=== PATIENT | female | born 1955 | race American Indian/Alaskan Native ===

== ENCOUNTER 2016-12-22 14:58 | Emergency (ER) | payer OTHER ==
[2016-12-22 14:59] VITALS: BMI 29.3
[2016-12-22] MEDS ORDERED: Sodium Chloride 0.9% 1,000 ML IV ONE (16:58)
[2016-12-22] MEDS ORDERED: Albuterol-Ipratrop 3 mg / 0.5 (3 ml) UD IH STA (17:00)
[2016-12-22] MEDS ORDERED: Sodium Chloride 0.9% 1,000 ML ONE (17:15)
[2016-12-22 17:20] LABS: BASO % 0.6 % (0.0-2.0); EOS % 0.3 % (0.0-4.0); HEMATOCRIT 41.1 % (34.0-47.0); LYMPH # 1.7 K/uL (1.0-4.3); LYMPH % 35.6 % (20.0-40.0); MEAN CELL VOLUME 70.2 fL (81.0-99.0); MEAN CORPUSCULAR HEMOGLOBIN 22.3 pg (27.0-31.0); MEAN CORPUSCULAR HGB CONC 31.8 g/dL (33.0-37.0); MEAN PLATELET VOLUME 10.1 fL (7.2-11.7); MONO # 0.8 K/uL (0.0-0.8); MONO % 15.7 % (0.0-10.0); NRBC % 0.1 % (0.0-2.0); RED CELL DISTRIBUTION WIDTH 14.6 % (11.5-14.5); WHITE BLOOD COUNT 4.8 K/uL (4.8-10.8)
[2016-12-22 17:30] LABS: CHLORIDE 92 mmol/L (98-107); POTASSIUM 4.3 mmol/L (3.6-5.2); SODIUM 137 mmol/L (132-148)
[2016-12-22 17:32] LABS: ALB/GLOB RATIO 1.1 (1.0-2.1); ALKALINE PHOSPHATASE 58 U/L (38-126); AST/SGOT 33 U/L (14-36); BILIRUBIN,TOTAL 0.7 mg/dL (0.2-1.3); CARBON DIOXIDE 26 mmol/L (22-30); GFR AFRICAN-AMERICAN > 60; TOTAL PROTEIN 8.3 g/dL (6.3-8.3)
[2016-12-22 17:33] LABS: ALT/SGPT 19 U/L (9-52); BLOOD UREA NITROGEN 27 mg/dL (7-17); CALCIUM 9.4 mg/dl (8.6-10.4); GLUCOSE,RANDOM 104 mg/dL (65-105)
[2016-12-22 17:41] LABS: RBC URINE < 1 /hpf (0-3); URINE BACTERIA RARE (<OCC); URINE BILIRUBIN NEGATIVE (NEGATIVE); URINE BLOOD NEGATIVE (NEGATIVE); URINE COLOR Yellow (YELLOW); URINE GLUCOSE (UA) NORMAL (Normal); URINE HYALINE CAST >20 /lpf (0-2); URINE KETONE TRACE mg/dL (NEGATIVE); URINE LEUKOCYTE ESTERASE NEG Leu/uL (Negative); URINE UROBILINOGEN NORMAL mg/dL (0.2-1.0); WBC URINE 2 /hpf (0-5)
[2016-12-22] MEDS ORDERED: Albuterol-Ipratrop 3 mg / 0.5 (3 ml) UD ONE (17:42)
[2016-12-22 17:47] LABS: URINE PROTEIN 1+ mg/dL (NEGATIVE)
--- NOTE | 2016-12-22 20:27 | US ---
EXAM: US Abdomen Limited, Right Upper Quadrant. CLINICAL HISTORY: 61 years old, female; Pain; Abdominal pain; Epigastric; Additional info: Ruq pain TECHNIQUE: Real-time ultrasound of the right upper quadrant with image documentation. EXAM DATE/TIME: 12/22/2016 6:06 PM COMPARISON: No relevant prior studies available. FINDINGS: Gallbladder: Within normal limits in appearance, without evidence of gallstones, significant gallbladder wall thickening, or pericholecystic fluid. Reportedly negative sonographic Wild's sign. Common bile duct: Does not appear abnormally dilated, measuring less than 6 mm in diameter. Liver: Within normal limits in appearance. Measures 14.5 cm in length. Normal flow seen in the main portal vein on color and Doppler imaging. Pancreas: Imaged portions appear unremarkable. Tail of the gland is obscured by bowel gas. Right kidney: Demonstrates very mild hydronephrosis. Otherwise within normal limits in appearance. Measures 10.7 cm in length. No renal calculi are visible sonographically. IMPRESSION: Very mild right hydronephrosis, cause not identified. Otherwise, no evidence of significant acute process. No evidence of acute cholecystitis. See above for remaining findings.
--- NOTE | 2016-12-22 21:01 | C.PDOC ---
Time Seen by Provider: 12/22/16 16:44 Chief Complaint (Nursing): Medical Clearance History Per: Patient Onset/Duration Of Symptoms: Days (few) Current Symptoms Are (Timing): Still Present Associated Symptoms: Fever, Cough, Nasal Congestion Severity: Moderate Additional History Per: Prior Records Past Medical History Reviewed: Historical Data, Nursing Documentation, Vital Signs Vital Signs: Last Vital Signs Temp 98.4 F 12/22/16 15:11 Pulse 73 12/22/16 15:11 Resp 19 12/22/16 15:11 BP 112/65 12/22/16 15:11 Pulse Ox 98 12/22/16 15:11 - Medical History PMH: Arthritis, HTN Other PMH: Sinusitis Surgical History: No Surg Hx Family History: States: Unknown Family Hx - Social History Hx Alcohol Use: No Hx Substance Use: No - Immunization History Hx Tetanus Toxoid Vaccination: No Hx Influenza Vaccination: No Hx Pneumococcal Vaccination: No Review Of Systems Except As Marked, All Systems Reviewed And Found Negative. Constitutional: Positive for: Fever, Malaise ENT: Positive for: Nose Congestion. Negative for: Throat Pain Cardiovascular: Negative for: Chest Pain Respiratory: Positive for: Cough. Negative for: Shortness of Breath, Hemoptysis Gastrointestinal: Positive for: Abdominal Pain Genitourinary: Negative for: Dysuria Musculoskeletal: Positive for: Back Pain. Negative for: Neck Pain Skin: Negative for: Rash Neurological: Negative for: Weakness, Numbness, Seizures, Altered Mental Status Physical Exam - Physical Exam Appears: Non-toxic, No Acute Distress Skin: Normal Color, Warm, Dry, No Rash Head: Atraumatic, Normacephalic Eye(s): bilateral: PERRL, EOMI Neck: Normal ROM, Supple Chest: Symmetrical Cardiovascular: Rhythm Regular Respiratory: Normal Breath Sounds, No Accessory Muscle Use Gastrointestinal/Abdominal: Soft, Tenderness (mild RUQ), No Guarding, No Rebound Back: No CVA Tenderness Extremity: Normal ROM Neurological/Psych: Oriented x3, Normal Motor, Normal Sensation ED Course And Treatment - Laboratory Results Result Diagrams: 12/22/16 17:14 12/22/16 17:14 Lab Interpretation: No Acute Changes O2 Sat by Pulse Oximetry: 98 Pulse Ox Interpretation: Normal - Radiology CXR: Interpreted by Me, Viewed By Me CXR Interpretation: Yes: No Acute Disease - CT Scan/US RUQ Sono Other Rad Studies (CT/US): Read By Radiologist, Radiology Report Reviewed CT/US Interpretation: IMPRESSION: Very mild right hydronephrosis, cause not identified. . Otherwise, no evidence of significant acute process. No evidence of acute. cholecystitis. . See above for remaining findings. Progress - Interventions Interventions:: Observation, Intravenous fluid - Medications Administered Inhaled nebulized: Anticholinergic, Beta-2 agonist Intravenous: Antiemetic, H-2 jameson, NSAID - Data Reviewed Data Reviewed: Lab, Diagnostic imaging, Old records - Patient Status Patient status: Mostly improved - Continuity of Care Discussed patient case with:: Patient, Family-HIPPA compliant, ED Nurse, PMD - Patient Plan Patient Plan: Discharge, F/U with PCP, Continue present meds Disposition Discussed With Dr.: Mendel Lawrence Doctor Will See Patient In The: Office Counseled Patient/Family Regarding: Studies Performed, Diagnosis, Need For Followup - Disposition Referrals: Mendel Lawrence MD [Staff Provider] - Disposition: HOME/ ROUTINE Disposition Time: 21:02 Condition: IMPROVED Additional Instructions: Drink plenty of fluids. Follow up with your doctor this week. Return to the ER if you develop shortness of breath, vomiting, worsening of symptoms or if you have any other concerns. Instructions: Cold Symptoms (ED) Forms: General Discharge Instructions - Clinical Impression Clinical Impression: Abdominal pain, Upper respiratory tract infection
[2016-12-22 21:35] VITALS: BP 117/72; PULSE 66; RESP 18; TEMP 99.2; O2SAT 96
--- NOTE | 2016-12-23 08:45 | RAD ---
PROCEDURE: CHEST RADIOGRAPH, 1 VIEW HISTORY: Cough COMPARISON: None available. FINDINGS: LUNGS: Mild venous congestion. PLEURA: No pneumothorax or pleural fluid seen. CARDIOVASCULAR: Normal. OSSEOUS STRUCTURES: Degenerative changes in the spine with paravertebral osteophytes. VISUALIZED UPPER ABDOMEN: Normal. OTHER FINDINGS: None. IMPRESSION: Mild venous congestion.
== END 2016-12-22 21:34 | disposition home or self-care (01) ==
LOC: C.ER 14:58
DX: R10.11 Right upper quadrant pain (principal); J06.9 Acute upper respiratory infection, unspecified
CPT/HCPCS: 71010; 76705; 80053; 81001; 83690; 85025; 87804; 94640; 96374; 96375; 99284; J1885; J2405; J7040

== ENCOUNTER 2017-09-17 13:41 | Emergency (ER) | payer MEDICAID, OTHER ==
[2017-09-17 13:41] VITALS: BMI 29.3
--- NOTE | 2017-09-17 14:23 | C.PDOC ---
History Of Present Illness 62 y/o female presents to ED with complaints of right sided abdominal pain and dysuria for "awhile". Patient also complains of vaginal itchiness, burning and discomfort for some time. Denies fever, chills, back pain, bowel/bladder incontinence, vomiting or any other complaints at this time. Patient states she has sen GI for her abdominal pain, last colonoscopy was 3 months ago and just showed polyps. Patient states she is taking the medications with no improvement. Time Seen by Provider: 09/17/17 14:00 Chief Complaint (Nursing): Abdominal Pain History Per: Patient History/Exam Limitations: no limitations Onset/Duration Of Symptoms: Days Current Symptoms Are (Timing): Still Present Location Of Pain/Discomfort: Suprapubic, Other (vaginal ) Associated Symptoms: Urinary Symptoms. denies: Nausea, Vomiting, Diarrhea, Loss Of Appetite Last Bowel Movement: Today Past Medical History Reviewed: Historical Data, Nursing Documentation, Vital Signs Vital Signs: Last Vital Signs Temp 97.8 F 09/17/17 15:47 Pulse 74 09/17/17 15:47 Resp 18 09/17/17 15:47 BP 134/70 09/17/17 15:47 Pulse Ox 98 09/17/17 15:47 - Medical History PMH: Arthritis, HTN Surgical History: No Surg Hx Family History: States: No Known Family Hx - Social History Hx Alcohol Use: No Hx Substance Use: No - Immunization History Hx Tetanus Toxoid Vaccination: No Hx Influenza Vaccination: No Hx Pneumococcal Vaccination: No Review Of Systems Constitutional: Negative for: Fever, Chills Gastrointestinal: Positive for: Abdominal Pain. Negative for: Vomiting, Diarrhea, Constipation Genitourinary: Positive for: Dysuria, Pelvic Pain. Negative for: Vaginal Discharge, Vaginal Bleeding Skin: Negative for: Rash Physical Exam - Physical Exam Appears: Non-toxic, No Acute Distress Skin: Normal Color, Warm, Dry, No Rash Head: Atraumatic, Normacephalic Eye(s): bilateral: Normal Inspection, EOMI Oral Mucosa: Moist Neck: Supple Cardiovascular: Rhythm Regular Respiratory: Normal Breath Sounds, No Rales, No Rhonchi, No Wheezing Gastrointestinal/Abdominal: Bowel Sounds, Soft, Tenderness (suprapubic and RUQ) , No Distention, No Guarding, No Rebound, No Hernia, No Ascites Back: No CVA Tenderness Pelvic: Normal External Exam, No Vaginal Bleeding, Vaginal Discharge (white copious amount), No Cervical Motion Tenderness, No Adnexal Tenderness Extremity: Normal ROM, Capillary Refill (<2 seconds), No Deformity, No Swelling Neurological/Psych: Oriented x3, Normal Speech, Normal Motor, Normal Sensation Gait: With Assistance (uses cane) ED Course And Treatment - Laboratory Results Result Diagrams: 09/17/17 14:32 09/17/17 14:32 Lab Interpretation: No Acute Changes O2 Sat by Pulse Oximetry: 97 (RA) Pulse Ox Interpretation: Normal Medical Decision Making Medical Decision Making: Impression: abdominal pain, vaginal pain Prior records reviewed: patient last seen on 12/22/16 for abdominal pain. Ultrasound results returned negative; discharged. Plan: Labs, Pepcid, Urine and urine culture ordered Progress: All labs reviewed Re-eval: patient has no fever and resting in no distress. Discussed lab results with patient. She is stable for discharge and instructed to follow up with GI regarding her abdominal pain and with recruit instructor. Rx sent to the pharmacy. Disposition Counseled Patient/Family Regarding: Studies Performed, Diagnosis, Need For Followup, Rx Given - [facility]position [facility] Disposition: HOME/ ROUTINE Disposition Time: 15:45 Condition: GOOD Additional Instructions: Please follow up with your recruit instructor and with your primary doctor for further evaluation Take medications as prescribed. Prescriptions: Clindamycin 2% 1 applic VG HS #1 tube metroNIDAZOLE [Flagyl] 500 mg PO BID #14 tab Instructions: Bacterial Vaginosis (ED) Forms: [facility] (I[place]ic) - POA Present On Arrival: None - Clinical Impression Clinical Impression: Abdominal pain, Vaginitis - PA / HEALTHCARE MARKETER / Resident Statement MD/DO has reviewed & agrees with the documentation as recorded. - Scribe Statement The provider has reviewed the documentation as recorded by the Jose Osorio All medical record entries made by the Jose were at my direction and personally dictated by me. I have reviewed the chart and agree that the record accurately reflects my personal performance of the history, physical exam, medical decision making, and the department course for this patient. I have also personally directed, reviewed, and agree with the discharge instructions and disposition.
[2017-09-17 14:37] LABS: BASO # 0.1 K/uL (0.0-0.2); BASO % 1.1 % (0.0-2.0); EOS # 0.1 K/uL (0.0-0.7); EOS % 1.7 % (0.0-4.0); HEMATOCRIT 36.4 % (34.0-47.0); LYMPH # 1.8 K/uL (1.0-4.3); LYMPH % 28.9 % (20.0-40.0); MEAN CORPUSCULAR HEMOGLOBIN 23.4 pg (27.0-31.0); MEAN CORPUSCULAR HGB CONC 32.2 g/dL (33.0-37.0); MEAN PLATELET VOLUME 9.7 fL (7.2-11.7); MONO # 0.4 K/uL (0.0-0.8); MONO % 6.4 % (0.0-10.0); NRBC % 0.1 % (0.0-2.0); RED CELL DISTRIBUTION WIDTH 14.2 % (11.5-14.5); WHITE BLOOD COUNT 6.2 K/uL (4.8-10.8)
[2017-09-17 14:39] LABS: MEAN CELL VOLUME 72.8 fL (81.0-99.0)
[2017-09-17 14:50] LABS: ALKALINE PHOSPHATASE 65 U/L (38-126); ALT/SGPT 18 U/L (9-52); AST/SGOT 21 U/L (14-36); BILIRUBIN,TOTAL 0.4 mg/dL (0.2-1.3); BLOOD UREA NITROGEN 18 mg/dL (7-17); CALCIUM 8.5 mg/dl (8.6-10.4); CARBON DIOXIDE 29 mmol/L (22-30); CHLORIDE 101 mmol/L (98-107); GFR AFRICAN-AMERICAN > 60; GLUCOSE,RANDOM 168 mg/dL (65-105); POTASSIUM 3.7 mmol/L (3.6-5.2); SODIUM 138 mmol/L (132-148); TOTAL PROTEIN 8.1 g/dL (6.3-8.3)
[2017-09-17 15:08] LABS: RBC URINE < 1 /hpf (0-3); URINE BILIRUBIN NEGATIVE (NEGATIVE); URINE BLOOD NEGATIVE (NEGATIVE); URINE COLOR Yellow (YELLOW); URINE GLUCOSE (UA) NORMAL (Normal); URINE KETONE NEGATIVE (NEGATIVE); URINE LEUKOCYTE ESTERASE NEG Leu/uL (Negative); URINE PROTEIN NEGATIVE (NEGATIVE); URINE UROBILINOGEN NORMAL mg/dL (0.2-1.0); WBC URINE 3 /hpf (0-5)
[2017-09-17 15:48] VITALS: BP 134/70; PULSE 74; RESP 18; TEMP 97.8
[2017-09-17 16:37] VITALS: O2SAT 97
== END 2017-09-17 15:48 | disposition home or self-care (01) ==
LOC: C.ER 13:41
DX: N76.0 Acute vaginitis (principal); R10.9 Unspecified abdominal pain; I10 Essential (primary) hypertension

== ENCOUNTER 2019-02-15 17:42 | Emergency (ER) | payer MEDICARE, MEDICAID ==
[2019-02-15 17:43] VITALS: BMI 29.3
[2019-02-15 18:02] VITALS: BP 160/69; PULSE 63; RESP 20; TEMP 98.6; O2SAT 97
--- NOTE | 2019-02-15 18:16 | C.PDOC ---
History Of Present Illness 63 year old female presents to ED complaining of a splinter in her left hand. Patient states she was closing a wooden door just prior to arrival when she got the splinter. She was able to remove a portion of it on her own, complains of mild discomfort. Patient denies weakness, numbness, or bleeding. Time Seen by Provider: 02/15/19 18:01 Chief Complaint (Nursing): Foreign Body History Per: Patient History/Exam Limitations: no limitations Onset/Duration Of Symptoms: Hrs (1) Current Symptoms Are (Timing): Still Present Location Of Injury: Left: Hand (splinter) Quality Of Symptoms: Painful Past Medical History Reviewed: Historical Data, Nursing Documentation, Vital Signs Vital Signs: Last Vital Signs Temp 98.6 F 02/15/19 17:54 Pulse 63 02/15/19 17:54 Resp 20 02/15/19 17:54 BP 160/69 H 02/15/19 17:54 Pulse Ox 97 02/15/19 17:54 Primary Care Provider: Mendel Lawrence Medical History PMH: Arthritis, HTN Denies: Chronic Kidney Disease Surgical History: Coronary Stent Family History: States: Unknown Family Hx - Social History Hx Alcohol Use: No Hx Substance Use: No - Immunization History Hx Tetanus Toxoid Vaccination: No Hx Influenza Vaccination: No Hx Pneumococcal Vaccination: No Review Of Systems Constitutional: Negative for: Fever, Chills, Weakness Musculoskeletal: Positive for: Other (splinter to the left hand) Skin: Negative for: Rash, Other (discharge) Neurological: Negative for: Weakness, Numbness Physical Exam - Physical Exam Appears: Non-toxic, No Acute Distress, Other (mild pain) Skin: Normal Color, Warm, Dry Head: Atraumatic, Normacephalic Extremity: Normal ROM, No Tenderness, Capillary Refill (<2 seconds), Other (small splinter between 1st and 2nd digit of the left hand, no erythema, no active bleeding, neurovascular intact) Pulses: Left Radial: Normal, Right Radial: Normal Neurological/Psych: Oriented x3, Normal Speech, Normal Cognition, Normal Motor, Normal Sensation ED Course And Treatment O2 Sat by Pulse Oximetry: 97 (in RA) Pulse Ox Interpretation: Normal Medical Decision Making Medical Decision Making: Splinter removed by myself using hemostat, area inspected for complete removal. Band-aid applied. Patient discharged home. Disposition Counseled Patient/Family Regarding: Diagnosis - Disposition Disposition: HOME/ ROUTINE Disposition Time: 18:15 Condition: STABLE Additional Instructions: Keep your bandage on for the next 1-2 hours, then you may take it off. You can clean the area with warm water and soap. Return to ED if you develop fever or notice red streaks coming from the splinter site Forms: [facility] (Sri [place]ankan) - Clinical Impression Clinical Impression: Splinter in skin - PA / [employer] GOODS DRILL OPERATOR / Resident Statement MD/DO has reviewed & agrees with the documentation as recorded. (Danisha Gomez) - Scribe Statement The provider has reviewed the documentation as recorded by the Scribe (Danisha Gomez) All medical record entries made by the Scribe were at my direction and personally dictated by me. I have reviewed the chart and agree that the record accurately reflects my personal performance of the history, physical exam, medical decision making, and the department course for this patient. I have also personally directed, reviewed, and agree with the discharge instructions and disposition.
== END 2019-02-15 18:47 | disposition home or self-care (01) ==
LOC: C.ER 17:42
DX: S60.552A Superficial foreign body of left hand, initial encounter (principal); W45.8XXA Other foreign body or object entering through skin, initial encounter